=== PATIENT | female | born 1955 | race American Indian/Alaskan Native ===

== ENCOUNTER 2016-09-23 22:36 | Emergency (ER) | payer OTHER ==
[2016-09-24 01:03] LABS: Basophils % (Auto) 0.2 % (0.0-1.8); Eosinophils % (Auto) 1.7 % (0.0-4.3); Hematocrit 44.9 % (30.3-42.9); Hemoglobin 14.3 gm/dl (10.1-14.3); Mean Corpuscular HGB Conc 32 % (30-34); Mean Corpuscular Volume 71 fl (79-97); Platelet Count 233 K/mm3 (140-440); Red Blood Count 6.35 M/mm3 (3.65-5.03); Red Cell Distribution Width 15.2 % (13.2-15.2); White Blood Count 11.3 K/mm3 (4.5-11.0)
[2016-09-24 01:13] LABS: Mean Corpuscular Hemoglobin 23 pg (28-32)
[2016-09-24 01:21] LABS: Anion Gap 17 mmol/L; BUN/Creatinine Ratio 16.25; Blood Urea Nitrogen 13 mg/dL (7-17); Calcium 9.3 mg/dL (8.4-10.2); Carbon Dioxide 27 mmol/L (22-30); Chloride 97.1 mmol/L (98-107); Glucose 115 mg/dL (65-100); Potassium 4.6 mmol/L (3.6-5.0); Sodium 136 mmol/L (137-145)
[2016-09-24 03:00] LABS: Bacteria,Urine 1+ /HPF (Negative); Bilirubin,Urine NEG (Negative); Blood,Urine NEG (Negative); Ketones,Urine NEG (Negative); Leukocyte Esterase,Urine NEG (Negative); Nitrite,Urine NEG (Negative); Protein,Urine <15 mg/dL mg/dL (Negative); RBC,Urine < 1.0 /HPF (0.0-6.0); Urobilinogen,Urine < 2.0 mg/dL (<2.0)
[2016-09-24] MEDS ORDERED: ZOFRAN ODT PO ONE (04:05)
--- NOTE | 2016-09-24 04:12 | Emergency Department Report ---
HPI - General Chief Complaint: Nausea/Vomiting/Diarrhea Time Seen by Provider: 09/24/16 04:05 - HPI HPI: 61-year-old -[place] female with a past medical history of hypertension comes in today for complaint of nausea vomiting diarrhea as well as right side shoulder pain. Patient reports that her shoulder has been given her pain for about 1 week. It does improve with ibuprofen. Patient reports that she is vomiting last around 12 AM at night. Last diarrhea episode with 11 PM. She is still complaining of nausea. These symptoms started yesterday. She reports that her pain is sharp it did start off at crampy. She feels that she is now vomiting up bile. ED Past Medical Hx - Past Medical History Previous Medical History?: Yes Hx Hypertension: Yes Additional medical history: fibroids. OBESITY - Surgical History Past Surgical History?: No - Social History Smoking Status: Never Smoker Substance Use Type: None - Medications Home Medications: Home Medications Medication Instructions Recorded Confirmed Last Taken Type HYDROcodone/APAP 7.5-325 [[place] 1 each PO Q6HR PRN #12 tablet 04/20/13 11/29/13 11/27/13 09:00 Rx 7.5-325 mg TAB] ALBUTEROL Inhaler [ProAir HFA 2 puff IH QID PRN #1 inhalation 11/29/13 Unknown Rx Inhaler] Hydrochlorothiazide 25 mg PO QDAY 11/29/13 11/29/13 11/27/13 09:00 History Lisinopril [Zestril] mg PO QDAY 11/29/13 11/29/13 11/27/13 09:00 History Promethazine [Phenergan TAB] 25 mg PO Q6H PRN #14 tablet 11/29/13 Unknown Rx Ondansetron [Zofran ODT TAB] 4 mg PO Q8HR PRN #20 tab.rapdis 09/24/16 Unknown Rx ED Review of Systems ROS: Stated complaint: EMESIS Other details as noted in HPI Constitutional: denies: chills, fever Eyes: denies: eye pain, eye discharge, vision change ENT: denies: ear pain, throat pain Respiratory: denies: cough, shortness of breath, wheezing Cardiovascular: as per HPI Gastrointestinal: abdominal pain, nausea, vomiting, diarrhea Genitourinary: denies: urgency, dysuria, discharge Musculoskeletal: denies: back pain, joint swelling, arthralgia Skin: denies: rash, lesions Neurological: denies: headache, weakness, paresthesias Psychiatric: denies: anxiety, depression Physical Exam - Physical Exam Vital Signs: Vital Signs 09/24/16 00:25 Temperature 99.4 F Pulse Rate 99 H Respiratory 18 Rate Blood Pressure 139/91 O2 Sat by Pulse 100 Oximetry General: GENERAL: Alert and oriented x3, no apparent distress, Normal Gait, atraumatic. HEAD: Head is normocephalic and a-traumatic. EYES: Extra ocular muscles are intact. Pupils are equal, round, and reactive to light and accommodation. EARS: symetrical, atraumatic, non tender, ear canal clear and moderate cerumen, tympanic membrance non inflamed. gross auditory nml bilaterally. NOSE: Nose symetrical, Nontender,Nares appeared normal. MOUTH:Mouth is well hydrated and without lesions. Tonsils nonerythematous or swollen, Uvula midline, Tongue not elevated. Mucous membranes are moist. Posterior pharynx clear, no exudate or lesions. Patent airways. NECK: Supple. Non edematous, No carotid bruits. No lymphadenopathy or thyromegaly. LUNGS: Symetrical with respiration, No wheezing, no rales or crackles, CTAB. HEART: S1, S2 present, regular rate and rhythm without murmur, no rubs, no gallops. ABDOMEN: No organomegaly was noted,Positive bowel sounds, soft, and non- distended. . Nontender to palpation on all Quadrants, NO CVA tenderness. EXTREMITIES/MUSCULOSKELETAL: No cyanosis, clubbing, rash, lesions or edema. Full ROM bilaterally. UE/LE Pulses 2+ bilaterally. LE and UE 5+ strength bilaterally NEUROLOGIC: No focal Deficit, Cranial nerves II through XII are grossly intact. No loss of sensation, No facial droop, PSYCHIATRIC: Mood is congruent with affect, SKIN: Warm and dry, No lesions, No ulceration or induration present ED Course Vital Signs 09/24/16 00:25 Temperature 99.4 F Pulse Rate 99 H Respiratory 18 Rate Blood Pressure 139/91 O2 Sat by Pulse 100 Oximetry ED Medical Decision Making - Lab Data Result diagrams: 09/24/16 00:48 09/24/16 00:48 Critical care attestation.: If time is entered above; I have spent that time in minutes in the direct care of this critically ill patient, excluding procedure time. ED Disposition Clinical Impression: Gastroenteritis Disposition: DISCHARGED TO HOME OR SELFCARE Is pt being admited?: No Does the pt Need Aspirin: No Condition: Stable Instructions: Gastroenteritis (ED) Additional Instructions: Take Zofran as prescribed. Start off with a liquid diet and advance as tolerated. Recommend bananas rice applesauce toast and then advance as tolerated. Follow-up with her primary care provider for further evaluation. Return to the emergency room if symptoms persisted does not improve. Prescriptions: Ondansetron [Zofran ODT TAB] 4 mg PO Q8HR PRN #20 tab.rapdis PRN Reason: Nausea Referrals: LAUREANO GARCIA MD [Primary Care Provider] - 3-5 Days Forms: Work/School Release Form(ED)
[2016-09-24 05:07] VITALS: BP 148/86
== END 2016-09-24 05:30 | disposition home or self-care (01) ==
LOC: ED 22:36
DX: K52.9 Noninfective gastroenteritis and colitis, unspecified (principal); I10 Essential (primary) hypertension
CPT/HCPCS: 36415; 80048; 81001; 85025; 99283; Q0162

== ENCOUNTER 2017-11-27 19:18 | Emergency (ER) | payer OTHER ==
--- NOTE | 2017-11-27 21:41 | Emergency Department Report ---
- General Chief complaint: Skin/Abscess/Foreign Body Stated complaint: INSECT BITE LT LEG Time Seen by Provider: 11/27/17 21:30 Source: patient Mode of arrival: Ambulatory Limitations: No Limitations - History of Present Illness Initial comments: 62-year-old female past medical history obesity, hypertension presents with complaint of 2 days of erythematous skin patch to left lower extremity and anterior poole region. Patient denies fevers chills nausea vomiting any direct trauma to leg. Patient states that she is highly suspicious an insect may have bitten or stung her skin layer. Visible patch of erythema approximately 10 cm in diameter left anterior poole region. Patient has no other complaints. Denies any personal history of PE or DVT. Patient states that she has not noticed any significant swelling of her legs otherwise. Patient states that the skin on anterior poole region is much more sensitive to touch than usual. Adamantly denies any calf pain when I specifically ask her if she has calf pain. Denies any recent travel or any recent trauma to area or recent surgeries. MD complaint: insect bite/sting Onset/Timin -: days(s) Location: LLE Severity: moderate Severity scale (0 -10): 5 Quality: burning, aching Consistency: intermittent Worsens with: palpation Associated symptoms: denies other symptoms Treatments Prior to Arrival: none - Related Data Home Medications Medication Instructions Recorded Confirmed Last Taken Hydrochlorothiazide 25 mg PO QDAY 11/29/13 11/29/13 11/27/13 09:00 Lisinopril [Zestril] mg PO QDAY 11/29/13 11/29/13 11/27/13 09:00 Previous Rx's Medication Instructions Recorded Last Taken Type HYDROcodone/APAP 7.5-325 [[place] 1 each PO Q6HR PRN #12 tablet 04/20/13 11/27/13 09:00 Rx 7.5-325 mg TAB] ALBUTEROL Inhaler [ProAir HFA 2 puff IH QID PRN #1 inhalation 11/29/13 Unknown Rx Inhaler] Promethazine [Phenergan TAB] 25 mg PO Q6H PRN #14 tablet 11/29/13 Unknown Rx Ondansetron [Zofran ODT TAB] 4 mg PO Q8HR PRN #20 tab.rapdis 09/24/16 Unknown Rx Ibuprofen [Motrin] 800 mg PO Q8HR PRN #25 tablet 11/27/17 Unknown Rx Sulfamethoxazole/Trimethoprim 1 each PO BID #14 tablet 11/27/17 Unknown Rx [Bactrim DS TAB] Allergies Allergy/AdvReac Type Severity Reaction Status Date / Time No Known Allergies Allergy Verified 03/09/15 15:36 Abscess Boil HPI - HPI Chief Complaint: Skin/Abscess/Foreign Body Stated Complaint: INSECT BITE LT LEG Time Seen by Provider: 11/27/17 21:30 Home Medications: Home Medications Medication Instructions Recorded Confirmed Last Taken Hydrochlorothiazide 25 mg PO QDAY 11/29/13 11/29/13 11/27/13 09:00 Lisinopril [Zestril] mg PO QDAY 11/29/13 11/29/13 11/27/13 09:00 Previous Rx's Medication Instructions Recorded Last Taken Type HYDROcodone/APAP 7.5-325 [[place] 1 each PO Q6HR PRN #12 tablet 04/20/13 11/27/13 09:00 Rx 7.5-325 mg TAB] ALBUTEROL Inhaler [ProAir HFA 2 puff IH QID PRN #1 inhalation 11/29/13 Unknown Rx Inhaler] Promethazine [Phenergan TAB] 25 mg PO Q6H PRN #14 tablet 11/29/13 Unknown Rx Ondansetron [Zofran ODT TAB] 4 mg PO Q8HR PRN #20 tab.rapdis 09/24/16 Unknown Rx Ibuprofen [Motrin] 800 mg PO Q8HR PRN #25 tablet 11/27/17 Unknown Rx Sulfamethoxazole/Trimethoprim 1 each PO BID #14 tablet 11/27/17 Unknown Rx [Bactrim DS TAB] Allergies/Adverse Reactions: Allergies Allergy/AdvReac Type Severity Reaction Status Date / Time No Known Allergies Allergy Verified 03/09/15 15:36 ED Review of Systems ROS: Stated complaint: INSECT BITE LT LEG Other details as noted in HPI Constitutional: denies: chills, fever Eyes: denies: eye pain, eye discharge, vision change ENT: denies: ear pain, throat pain Respiratory: denies: cough, shortness of breath, wheezing Cardiovascular: denies: chest pain, palpitations Endocrine: no symptoms reported Gastrointestinal: denies: abdominal pain, nausea, diarrhea Genitourinary: denies: urgency, dysuria, discharge Musculoskeletal: denies: back pain, joint swelling, arthralgia Skin: as per HPI, change in color. denies: rash, lesions Neurological: denies: headache, weakness, paresthesias Psychiatric: denies: anxiety, depression Hematological/Lymphatic: denies: easy bleeding, easy bruising ED Past Medical Hx - Past Medical History Previous Medical History?: Yes Hx Hypertension: Yes Additional medical history: fibroids. OBESITY - Surgical History Past Surgical History?: No - Social History Smoking Status: Never Smoker Substance Use Type: None - Medications Home Medications: Home Medications Medication Instructions Recorded Confirmed Last Taken Type HYDROcodone/APAP 7.5-325 [[place] 1 each PO Q6HR PRN #12 tablet 04/20/13 11/29/13 11/27/13 09:00 Rx 7.5-325 mg TAB] ALBUTEROL Inhaler [ProAir HFA 2 puff IH QID PRN #1 inhalation 11/29/13 Unknown Rx Inhaler] Hydrochlorothiazide 25 mg PO QDAY 11/29/13 11/29/13 11/27/13 09:00 History Lisinopril [Zestril] mg PO QDAY 11/29/13 11/29/13 11/27/13 09:00 History Promethazine [Phenergan TAB] 25 mg PO Q6H PRN #14 tablet 11/29/13 Unknown Rx Ondansetron [Zofran ODT TAB] 4 mg PO Q8HR PRN #20 tab.rapdis 09/24/16 Unknown Rx Ibuprofen [Motrin] 800 mg PO Q8HR PRN #25 tablet 11/27/17 Unknown Rx Sulfamethoxazole/Trimethoprim 1 each PO BID #14 tablet 11/27/17 Unknown Rx [Bactrim DS TAB] ED Physical Exam - General Limitations: No Limitations General appearance: alert, in no apparent distress - Head Head exam: Present: atraumatic, normocephalic - Eye Eye exam: Present: normal appearance - ENT ENT exam: Present: mucous membranes moist - Neck Neck exam: Present: normal inspection - Respiratory Respiratory exam: Present: normal lung sounds bilaterally. Absent: respiratory distress - Cardiovascular Cardiovascular Exam: Present: regular rate, normal rhythm. Absent: systolic murmur, diastolic murmur, rubs, gallop - GI/Abdominal GI/Abdominal exam: Present: soft, normal bowel sounds - Extremities Exam Extremities exam: Present: normal inspection - Expanded Lower Extremity Exam Left Lower Leg exam: Present: tenderness, erythema (patch of erythema approximately 10 cm left anterior tibial region) Ankle exam: Present: normal inspection, full ROM Foot/Toe exam: Present: normal inspection, full ROM Neuro vascular tendon exam: Present: no vascular compromise (distal dorsalis pedis and posterior tibial pulses strong to palpation) Gait: Positive: observed and normal 1 - Patch of induration and erythema here approximately 10 cm in diameter. There is no palpable fluctuance or drainable collection upon inspection and palpation of area - Back Exam Back exam: Present: normal inspection - Neurological Exam Neurological exam: Present: alert, oriented X3, CN II-XII intact, normal gait - Psychiatric Psychiatric exam: Present: normal affect, normal mood - Skin Skin exam: Present: warm, dry, intact, normal color. Absent: rash ED Course Vital Signs 11/27/17 19:31 Temperature 98.3 F Pulse Rate 80 Respiratory 18 Rate Blood Pressure 130/84 O2 Sat by Pulse 94 Oximetry ED Medical Decision Making - Medical Decision Making A/P: Left lower extremity cellulitis 1-empiric course of Bactrim DS twice a day 7 days 2-Motrin 800 when necessary 3-borders of cellulitis marked I advised the patient to keep track of the borders and to return to the ED for any rapid spread of borders of erythema and induration fevers chills Swelling or tenderness inability to ambulate pain out of proportion or loss of sensation in left lower extremity. Patient stated she understood my instructions 4- follow up with primary care Critical care attestation.: If time is entered above; I have spent that time in minutes in the direct care of this critically ill patient, excluding procedure time. ED Disposition Clinical Impression: Left leg cellulitis Disposition: TO HOME OR SELFCARE Is pt being admited?: No Does the pt Need Aspirin: No Condition: Stable Instructions: Cellulitis (ED) Prescriptions: Ibuprofen [Motrin] 800 mg PO Q8HR PRN #25 tablet PRN Reason: Pain Sulfamethoxazole/Trimethoprim [Bactrim DS TAB] 1 each PO BID #14 tablet Referrals: LAUREANO GARCIA MD [Primary Care Provider] - 3-5 Days [facility] [Provider Group] - 3-5 Days Time of Disposition: 22:06
[2017-11-27] MEDS ORDERED: MOTRIN PO ONE (22:02)
[2017-11-27] MEDS ORDERED: BACTRIM DS PO ONE (22:02)
[2017-11-27 22:17] VITALS: BP 148/76
== END 2017-11-27 22:15 | disposition home or self-care (01) ==
LOC: ED 19:18
DX: S80.862A Insect bite (nonvenomous), left lower leg, initial encounter (principal); L03.116 Cellulitis of left lower limb; I10 Essential (primary) hypertension; W57.XXXA Bitten or stung by nonvenomous insect and other nonvenomous arthropods, initial encounter; Y93.89 Activity, other specified; Y92.89 Other specified places as the place of occurrence of the external cause; Y99.8 Other external cause status
CPT/HCPCS: 99282